=== PATIENT | female | born 1990 | race Caucasian/White ===

== ENCOUNTER 2017-02-11 16:50 | Emergency (ER) | payer SELFPAY ==
[~2017-02-11] VITALS: Ht 157.5 cm; Wt 54.4 kg
[2017-02-11 17:13] VITALS: BP 106/73
[2017-02-11] MEDS ORDERED: PRENATAL1 TA1 PO (17:18)
--- NOTE | 2017-02-11 17:18 | NUR ---
PT AMBULATE TO RESTROOM AT THIS TIME.
--- NOTE | 2017-02-11 17:35 | NUR ---
PHLEBOTOMY DRAWING BLOOD AT THIS TIME.
--- NOTE | 2017-02-11 17:55 | NUR ---
Patient taken from ED lobby to US by tech via wheelchair.
--- NOTE | 2017-02-11 19:00 | NUR ---
Pt taken to bed 8.
--- NOTE | 2017-02-11 19:05 | NUR ---
26 Y/O F W/C/O VAGINAL SPOTING X Tuesday02/09/17. DENIES ANY ABD PAIN. NO S/S OF DISTRESS NOTED AT THE MOMENT. ER MADE AWARE.
[2017-02-11 20:00] VITALS: BP 114/67
--- NOTE | 2017-02-11 20:00 | NUR ---
Patient discharged with v/s stable. Written and verbal after care instructions given and explained. Patient verbalized understanding. Ambulatory with steady gait. All questions addressed prior to discharge. Advised to follow up with PMD TOMORROW OR RETURN TO ER IF CONDITION WORSENS.
== END 2017-02-11 20:00 | disposition home or self-care (01) ==
LOC: MED 16:50
DX: O20.0 Threatened abortion (principal); Z3A.01 Less than 8 weeks gestation of pregnancy